=== PATIENT | female | born 1955 | race Caucasian/White ===

== ENCOUNTER 2021-11-22 15:04 | Outpatient (CLI) | payer MEDICARE | END 2021-11-22 15:05 | disposition home or self-care (01) | LOC: CSHMRI 15:04 | PROVIDERS: ATTEND Nurse Practitioner Family | DX: M50.123 Cervical disc disorder at C6-C7 level with radiculopathy (principal); M47.812 Spondylosis without myelopathy or radiculopathy, cervical region | CPT/HCPCS: 72141 ==

== ENCOUNTER 2022-02-13 15:02 | Outpatient (CLI) | payer MEDICARE | END 2022-02-13 15:03 | disposition home or self-care (01) | LOC: CSHMRI 15:02 | PROVIDERS: ATTEND Anesthesiology Pain Medicine | DX: M54.16 Radiculopathy, lumbar region (principal); M47.816 Spondylosis without myelopathy or radiculopathy, lumbar region | CPT/HCPCS: 72148 ==

== ENCOUNTER 2022-02-20 15:15 | Outpatient (CLI) | payer MEDICARE | END 2022-02-20 15:16 | disposition home or self-care (01) | LOC: CSHRAD 15:15 | PROVIDERS: ATTEND Anesthesiology Pain Medicine | DX: M43.17 Spondylolisthesis, lumbosacral region (principal); M41.9 Scoliosis, unspecified; M51.37 Other intervertebral disc degeneration, lumbosacral region | CPT/HCPCS: 72110 ==

== ENCOUNTER 2024-04-07 13:45 | Outpatient (CLI) | payer MEDICARE | END 2024-04-07 13:46 | disposition home or self-care (01) | LOC: CSHMAMMO 13:45 | PROVIDERS: ATTEND Obstetrics & Gynecology | DX: Z78.0 Asymptomatic menopausal state (principal); M85.851 Other specified disorders of bone density and structure, right thigh; M85.852 Other specified disorders of bone density and structure, left thigh | CPT/HCPCS: 77080 ==

== ENCOUNTER 2024-06-08 10:58 | Outpatient (CLI) | payer MEDICARE | END 2024-06-08 10:59 | disposition home or self-care (01) | LOC: CSHRAD 10:58 | PROVIDERS: ATTEND Physician Assistant | DX: M51.16 Intervertebral disc disorders with radiculopathy, lumbar region (principal); Z98.890 Other specified postprocedural states; M47.26 Other spondylosis with radiculopathy, lumbar region; M41.9 Scoliosis, unspecified | CPT/HCPCS: 72100 ==

== ENCOUNTER 2024-08-17 12:07 | Day surgery (SDC) | payer MEDICARE ==
[~2024-08-17 12:07] MED LIST: Iopamidol-M 200 41% 10 ML VIAL FS ONE
[2024-08-17] MEDS ORDERED: Lidocaine 1% PF 5 ML VIAL ONE (12:17)
[2024-08-17] MEDS ORDERED: Sodium Bicarbonate 2.5 MEQ/5 ML SDV ONE (12:17)
[2024-08-17 12:45] VITALS: BP 153/76; TEMP 98.5
[2024-08-17] MEDS ORDERED: FLU (Fluad Triv) TS24-25 (65UP)/MF59C/PF 45 MCG/0.5 ML Syringe IM ONE (13:00)
== END 2024-08-17 14:25 | disposition home or self-care (01) ==
LOC: CSHRAD 12:07
PROVIDERS: ATTEND Neurological Surgery
PROC: B00BYZZ Plain Radiography of Spinal Cord using Other Contrast (ICD-10-PCS; principal; 2024-08-17)
DX: M54.16 Radiculopathy, lumbar region (principal)
CPT/HCPCS: 62284; 72132; 77003; Q9966

== ENCOUNTER 2025-05-11 14:11 | Outpatient (CLI) | payer MEDICARE | END 2025-05-11 14:12 | disposition home or self-care (01) | LOC: CSHRAD 14:11 | PROVIDERS: ATTEND Physician Assistant | DX: M54.16 Radiculopathy, lumbar region (principal); Q76.49 Other congenital malformations of spine, not associated with scoliosis; M41.86 Other forms of scoliosis, lumbar region; Z98.890 Other specified postprocedural states | CPT/HCPCS: 72100 ==

== ENCOUNTER 2025-06-22 10:14 | Outpatient (CLI) | payer MEDICARE | END 2025-06-22 10:15 | disposition home or self-care (01) | LOC: CSHRAD 10:14 | PROVIDERS: ATTEND Neurological Surgery | DX: M54.16 Radiculopathy, lumbar region (principal); Z98.890 Other specified postprocedural states | CPT/HCPCS: 72100 ==